=== PATIENT | male | born 1945 | race Caucasian/White ===

== ENCOUNTER 2022-06-20 06:26 | Inpatient (IN) ==
--- NOTE | 2022-06-16 10:04 | Anesthesiology Consultation ---
Date of Service June 16, 2022 Assessment & Plan (1) Encounter for pre-operative examination: Chart Review Chart Review: Pending: Refer to Additional Notes / Consult section (pending most recent [facility] cardio note) and Patient NOT seen in Pre Admission Testing - Please fax for most recent [facility] Cardio note (per patient- seen 05/2022) - Check BSG AM DOS - Will order preop EKG DOS -COVID screening: Per PAT nursing assessment on 06/10/22. No known COVID-19 positive contacts or current COVID-19 related symptoms. Travel screen negative. Patient vaccinated for Covid. At surgeon discretion if preop Covid testing being done. History Surgery Operation Date: 06/20/22 08:30 Proposed Procedures p Bilateral Open Inguinal Hernia Repair - Juan Singh MD, FACS Height/Weight Height: 5 ft 6 in Weight: 66.678 kg Allergies Allergy/AdvReac Type Severity Reaction Status Date / Time morphine AdvReac Hallucinati Verified 06/10/22 10:43 ng Medications Home Medications Medication Instructions Recorded Confirmed Last Taken aspirin 81 mg tablet,delayed 81 mg PO QAM 01/13/20 06/10/22 Unknown release (Adult Low Dose Aspirin) atorvastatin 80 mg tablet 80 mg PO QAM 01/13/20 06/10/22 Unknown folic acid 1 mg tablet 1 mg PO QAM 01/13/20 06/10/22 Unknown metoprolol tartrate 25 mg tablet 50 mg PO QAM 01/13/20 06/10/22 Unknown lidocaine 5 % topical ointment 1 applic topical BID PRN pain 09/04/20 06/10/22 Unknown clobetasol 0.05 % topical gel 1 applic topical DAILY 06/08/22 06/10/22 Unknown empagliflozin 10 mg tablet 10 mg PO QAM 06/08/22 06/10/22 Unknown lisinopril 10 mg tablet 5 mg PO QAM 06/08/22 06/10/22 Unknown multivit,tx w/iron (hematinic) 27 1 tab PO QAM 06/08/22 06/10/22 Unknown mg-0.8 mg tablet furosemide 20 mg tablet 20 mg PO QAM 06/09/22 06/10/22 Unknown insulin glargine 100 unit/mL (3 10 unit subcut PM PRN dm 06/10/22 06/10/22 Unknown mL) subcutaneous pen (Lantus Solostar U-100 Insulin) Past Medical History Medical History CAD (coronary artery disease) Follows with [facility] Cardiology s/p 2 vessel CABG 2019 Cardiomyopathy EF 20% in 2019 prior to CABG- per 2021 ECHO- EF 50-55% Chronic kidney disease DDD (degenerative disc disease) DM type 2 (diabetes mellitus, type 2) History of myocardial infarction 11/2019 HTN (hypertension) Hypercholesteremia Lumbar facet joint syndrome Lumbar radicular pain Lumbar spondylosis Moderate aortic stenosis Last ECHO 12/17/21 Sciatica Past Family History Family History Other Unknown family medical history Past Surgical History Surgical History History of cardiac cath 11/2019 - [facility] - [place] ---> CABG History of colonoscopy History of coronary artery bypass graft x 2 History of umbilical hernia repair Social History Smoking Status: Former smoker Do You Dip or Chew Tobacco: No Smoking End Date: quit 36 years ago Hx Alcohol Use: Yes alcohol intake frequency: holidays/special occasions only Hx Substance Use: No substance use type: does not use Lab Results Anesthesia Preop Results Results Anesthesia Widget: WBC 9.48 K/ul (4.8-10.8) 06/09/22 Hgb 12.5 g/dl (14.0-18.0) L 06/09/22 Hct 38.7 % (40.1-51.0) L 06/09/22 Plt 311 K/uL (130-400) 06/09/22 Na 139 mmol/L (136-145) 06/09/22 K 4.2 mmol/L (3.5-5.1) 06/09/22 Cl 107 mmol/L (98-107) 06/09/22 CO2 24 mmol/L (21-32) 06/09/22 BUN 35 mg/dl (6-23) H 06/09/22 Creat 1.81 mg/dl (0.6-1.4) H 06/09/22 Glucose Level 130 mg/dl (70-99(Fasting)) H 06/09/22 Testing Laboratory Results Elevated creatinine- CKD per records - creatinine stable (1.8 in [facility]) Echocardiogram Date: 12/17/21 EF: 50-55% LV Function: normal Other Findings: + diastolic dysfunction (Grade 1); no LVH Mild basal to mid inferior wall hypokinesis Mild mitral annular calcification Restricted aortic leaflet opening consistent with moderate aortic stenosis. (DESTINY 1.1cm2; AV mean PG 13.18mmHg; AV max velocity 2.25m/s) No AR Mild TR. No evidence of pulmonary hypertension. Cardiac Catheterization Date: 11/07/19 Multivessel CAD with severe LV systolic dysfunction. Distal left main 30% stenosis LAD descending proximal 99% stenosis Left circumflex ostial 70 to 80% stenosis, mid 100% RCA proximal mid 50% stenosis, with proximal PDA 70-80% lesion EF 20% (Patient had subsequent two-vessel CABG)
[~2022-06-20 06:26] MED LIST: LR 15ML/HR IV SCH; ceFAZolin 2000MG 2,000 MG/15 ML SYR IV SCH
[2022-06-20] MEDS ORDERED: PROPOFOL IV EMULSION 10 MG/ML 20 ML VIAL IV ONE (07:23)
[2022-06-20] MEDS ORDERED: LIDOCAINE 2% MPF LOCAL 5 ML VIAL INFIL ONE (07:23)
[2022-06-20] MEDS ORDERED: ONDANSETRON INJ 2 MG/ML 2 ML VIAL ONE (07:23)
[2022-06-20] MEDS ORDERED: fentaNYL citrate 100 MCG/2 ML VIAL ONE (07:23)
[2022-06-20] MEDS ORDERED: ePHEDrine sulfate 50 MG/ML AMP IV PRN (08:02)
[2022-06-20] MEDS ORDERED: ONDANSETRON INJ 2 MG/ML 2 ML VIAL IV PRN ×2 (08:02→12:16)
[2022-06-20] MEDS ORDERED: PROMETHAZINE HCL 12.5 MG in SODIUM CHLORIDE 0.9% 50 ML IV PRN (08:02)
[2022-06-20] MEDS ORDERED: LABETALOL HCL IV 5 MG/ML 20ML IV PRN (08:02)
[2022-06-20] MEDS ORDERED: NALOXONE HCL 0.4 MG/1 ML VIAL/CARP IV PRN (08:02)
[2022-06-20] MEDS ORDERED: fentaNYL citrate 100 MCG/2 ML VIAL IV PRN (08:02)
[2022-06-20] MEDS ORDERED: FLUMAZENIL 0.1 MG/1 ML 10 ML VIAL IV PRN (08:02)
[2022-06-20] MEDS ORDERED: ATROPINE SULFATE 0.1 MG/ML 10ML SYR IV PRN (08:02)
--- NOTE | 2022-06-20 08:08 | History & Physical Bridge Note ---
Date of Service June 20, 2022 History & Physical Bridge Note I have examined the patient, reviewed the History & Physical and in the interval since the performance of the History & Physical I have noted the following changes of clinical significance: no changes noted
[2022-06-20] MEDS ORDERED: BUPIVACAINE 0.5 % 5 MG/1 ML MPF 30ML VIAL ONE (08:28)
[2022-06-20] MEDS ORDERED: ceFAZolin 330 MG/ML 1 GM VIAL ONE (08:28)
[2022-06-20] MEDS ORDERED: PHENYLEPHRINE HCL 10 MG/ML VIAL ONE (09:44)
[2022-06-20] MEDS ORDERED: PHENYLEPHRINE 100MCG/ML 5ML SYR ONE (09:44)
--- NOTE | 2022-06-20 10:05 | Post Operative Brief Note ---
PG Immediate Post Op with CF Date of Surgery June 20, 2022 Pre & Post Diagnosis Operation Date: 06/20/22 08:30 Pre-Op Diagnosis: Bilateral Inguinal Hernia Post-Op Diagnosis: Bilateral Inguinal Hernia Right direct Left indirect I identified the patient and participated in the time-out.: Yes Procedure Operation Date: 06/20/22 08:30 Actual Procedures p Bilateral Open Inguinal Hernia Repair with Mesh(Bilateral) - Juan Singh MD, FACS Surgeon Juan Singh MD, FACS Jackspooler milton reeves Estimated Blood Loss 10 Findings Consistent with Post-Op Diagnosis Right direct inguinal hernia Left indirect inguinal hernia
[2022-06-20] MEDS ORDERED: ACETAMINOPHEN 1,000 MG/100 ML VIAL IV ONE (10:10)
--- NOTE | 2022-06-20 10:37 | Hospitalist Consultation ---
Date of Consultation June 20, 2022 Assessment & Plan (1) Status post bilateral inguinal hernia repair: Pain, VTE and bowel regimen management per primary team EBL 10ml No acute need to repeat labs today, will get routine post op labs in AM (2) Chronic kidney disease: Basline Cr per last [facility] 1.8. Repeat BMP with AM labs (3) Chronic heart failure with preserved ejection fraction: Advised patient to clarify medications with his skimmer at next visit as cardiology note suggest he takes spironolactone and no furosemide however he actually take furosemide 20mg PO daily. Med rec was incorrect and he actually takes metoprolol succinate rather than tartrate. He also only takes half a tablet. I updated this on the patients home med list and it is consistent on his skimmer's and [facility] notes Ok for slow routine IV fluids post operatively, LR is ideal - if he becomes more short of breath however these should be discontinued. (4) Cardiomyopathy: Ischemic with CABG in November 2019 LVEF 50-55% per Continue his routine metoprolol succinate and lisinopril (with hold parameters) as above (5) H/O coronary artery bypass surgery: Restart aspirin when ok by surgery Should continue metoprolol succinate perioperatively Restart atorvastatin in AM Restart lisinopril tomorrow with hold parameters (6) Diabetes: T2DM HbA1C per [facility] notes 7.5, no need to repeat this Pharmacy consulted for glycemic control. Preferably continue Jardiance in AM given concurrent chronic CHF. (7) Hypercholesteremia: Restart atorvastatin in AM (8) HTN (hypertension): Continue metoprolol succinate as above Lisinopril can restart tomorrow with hold parameters if sBP < 120 Furosemide restart on 06/22 as long as BP ok Plan VTE Prophylaxis - per primary surgical team Diet - per primary surgical team Disposition - no acute medical needs identified but given complexity in patient we will continue to follow him along with you while he is admitted. History of Present Illness Reason for Consultation: Medical management Attending Physician: Juan Singh MD, FACS History of Present Illness Alonzo Chaudhary is a 76 year old male who presents for elective bilateral inguinal hernia repair performed by Dr Singh earlier today. Estimated blood loss 10ml. No complications dueing surgical procedure. He reports taking his usual metoprolol this morning as per recommendations from his skimmer. Chronic medical conditions per scanned records and patient recollection: Chronic HFpEF - on spironolactone 25mg PO daily on cardiology note but furosemide 20mg PO daily [facility]. Unable to clarify external med list as he [facility] therefore suspect the [facility] record is more accurate. Patient confirms taking furosemide and not spironolactone. No shortness of breath at this time and no increasing orthopnea before operation. Currently on room air and lungs clear to auscultation b/l. Ischemic cardiomyopathy - LVEF recovered to 50-55% per last cardiology note Moderate aortic stenosis - no chest pain, shortness of breath or lightheadedness normal on exertion. Chronic kidney disease with baseline Cr 2.18 under nephrology per outpatient notes, pre-op Cr 1.8 Coronary artery disease - patient underwent CABG in November 2019 with BUITRAGO-LAd and SVG-PDA Cardiology recommendations for surgery - gordon-operative B blockade. Monotherapy with ASA need not be routinely d/c'd for surgery but left to surgeons discretion T2DM - HbA1C 7.5 on May 19, 2022 labs from [place], no need to repeat this. Takes 10 units HS if > 150 of Lantus. Stopped Jardiance Monday, Sat Monday. B12 def. - takes multivitamin Idiopathic progressive neuropathy - although with his diabetes and B12 def. listed I'm unclear why this is listed as idiopathic Allergies Allergy/AdvReac Type Severity Reaction Status Date / Time morphine AdvReac Hallucinati Verified 06/20/22 07:00 Home Medications Medication Instructions Recorded Confirmed Type aspirin 81 mg tablet,delayed 81 mg PO QAM 01/13/20 06/20/22 History release (Adult Low Dose Aspirin) atorvastatin 80 mg tablet (Lipitor) 80 mg PO QAM 01/13/20 06/20/22 History folic acid 1 mg tablet 1 mg PO QAM 01/13/20 06/20/22 History lidocaine 5 % topical ointment 1 applic topical BID PRN pain 09/04/20 06/20/22 History clobetasol 0.05 % topical gel 1 applic topical DAILY 06/08/22 06/20/22 History empagliflozin 10 mg tablet 10 mg PO QAM 06/08/22 06/20/22 History (Jardiance) lisinopril 10 mg tablet 5 mg PO QAM 06/08/22 06/20/22 History multivit,tx w/iron (hematinic) 27 1 tab PO QAM 06/08/22 06/20/22 History mg-0.8 mg tablet furosemide 20 mg tablet 20 mg PO QAM 06/09/22 06/20/22 History insulin glargine 100 unit/mL (3 10 unit subcut PM PRN dm 06/10/22 06/20/22 History mL) subcutaneous pen (Lantus Solostar U-100 Insulin) metoprolol succinate 50 mg 25 mg PO DAILY 06/20/22 06/20/22 History tablet,extended release 24 hr Patient History Medical History (Updated 06/20/22 @ 10:39 by Brenton Khan MD) CAD (coronary artery disease) Follows with [facility] Cardiology s/p 2 vessel CABG 2019 Cardiomyopathy EF 20% in 2019 prior to CABG- per 2021 ECHO- EF 50-55% Chronic kidney disease DDD (degenerative disc disease) DM type 2 (diabetes mellitus, type 2) History of myocardial infarction 11/2019 HTN (hypertension) Hypercholesteremia Lumbar facet joint syndrome Lumbar radicular pain Lumbar spondylosis Moderate aortic stenosis Last ECHO 12/17/21 Sciatica Surgical History (Updated 06/20/22 @ 14:58 by Polly Heredia RN) H/O bilateral inguinal hernia repair (06/20/22) Bilateral inguinal hernia repair Dr. Singh History of cardiac cath 11/2019 - [facility] ---> CABG History of colonoscopy History of coronary artery bypass graft x 2 History of umbilical hernia repair Family History Other Unknown family medical history Social History Smoking Status: Former smoker Smoking End Date: quit 36 years ago; Second Hand Exposure: No; Do You Dip or Chew Tobacco: No; Tobacco Cessation Education Requested by Patient: No Hx Alcohol Use: Yes Hx Substance Use: No Preferred Language: Sammarinese Communication Ability: Effective Visual Impairment: No Limitations Admitting Clerk Required: No Beliefs That Will Affect Care: None marital status: Current Living Situation: Spouse current occupational status: retired How many Children do You have: 2 Feels Safe at Home: Yes Safety Concerns: Feels Safe At This Time during the past year weight has: decreased > 10 lbs Assistive Devices: Denture - Upper Assistive Devices Comment: reading glasses Review of Systems Review of Systems: All systems reviewed & are unremarkable except as noted in Subjective Physical Exam Constitutional: WD/WN, vitals as above Eyes: + anicteric sclerae; normal pupil size Respiratory: normal respiratory effort, lungs clear to auscultation Cardiovascular: RRR, no murmur, no edema Gastrointestinal (Abdomen): Percussion/Palpation: + abdomen tender (around surgical incisions) and abdomen soft; no guarding and abdomen not rigid Musculoskeletal: no cyanosis or clubbing, extremities motor strength 5/5 Skin: no rashes, warm and dry Neurologic: moves all extremities and awake; not confused Psychiatric: A+Ox3, euthymic affect Results & Data Results & Data ([facility]) Vital Signs (Past 12 Hours) Vital Signs Temp Pulse Resp BP Pulse Ox O2 Del Method 06/20/22 07:12 36.5 C 77 18 121/80 97 Room Air PG Care Time/CCT Total # of Minutes Spent Total Time Spent with Patient: Total time spent is greater than 50% in coordination of care (as documented) at patient's floor/unit and/or counseling patient: Coding Level of Care Code 38955 Inpt Consult Level 5 Diagnoses Status post bilateral inguinal hernia repair Z98.890; Z87.19 Chronic kidney disease N18.9 Chronic heart failure with preserved ejection fraction I50.32 Cardiomyopathy I42.9 H/O coronary artery bypass surgery Z95.1 Diabetes E11.9 Hypercholesteremia E78.00 HTN (hypertension) I10
--- NOTE | 2022-06-20 10:59 | Anesthesiology Progress Note ---
Date of Service June 20, 2022 Anesthesia Post Procedure Vital Signs Vital Signs: Temp Pulse Pulse Resp BP BP Pulse Ox 06/20/22 10:50 69 21 136/61 96 06/20/22 10:40 73 23 141/78 H 96 06/20/22 10:30 64 22 144/83 H 98 06/20/22 10:20 80 21 153/68 H 98 06/20/22 10:12 36.2 C L 75 14 138/84 98 06/20/22 07:12 36.5 C 77 18 121/80 97 O2 Del Method O2 Flow Rate 06/20/22 10:50 Room Air 06/20/22 10:40 Room Air 06/20/22 10:30 Room Air 06/20/22 10:20 Oxymask 2 06/20/22 10:12 Oxymask 2 06/20/22 07:12 Room Air Pain Intensity Left Groin: Pain Intensity: 6 Right Groin: Pain Intensity: 2 Transfer of Care Handoff Completed per policy Notes Mental Status: alert / awake / arousable Patient Amnestic to Procedure: Yes Nausea / Vomiting: adequately controlled Pain: adequately controlled Airway Patency, RR, SpO2: stable & adequate BP & HR: stable & adequate Hydration State: stable & adequate Anesthetic Complications: no major complications apparent
--- NOTE | 2022-06-20 11:43 | Operative Report (OR) ---
DATE OF OPERATION: 06/20/2022. NAME OF OPERATION: Bilateral inguinal hernia repair. PREOPERATIVE DIAGNOSIS: Bilateral inguinal hernia. POSTOPERATIVE DIAGNOSIS: Bilateral inguinal hernia with indirect defect on the right and indirect de fect on the left. STAFF SURGEON: Juan Singh MD. SPEEDER MACHINE OPERATOR: Opal Raymundo PA-C. ANESTHESIA: General. DESCRIPTION OF PROCEDURE: The patient was brought in the operating room and placed on the operating table in supine position. We did attempt Chapman catheter, but had difficulty passing; therefore, we h eld off. His lower abdomen was prepped and draped in the usual fashion. My assistant administrator helped with pre pping, draping, repair of the hernias, and closure of the wounds. Left side was approached first. B oth sides were anesthetized using 0.5% plain Marcaine for the skin and subcutaneous tissue and also d eep tissue. Incision was made on the left side parallel to the inguinal ligament, carrying dissectio n down, identifying the external oblique fibers, incising them along their length. Cord structures w ere mobilized. The patient had a large indirect hernia, which was reduced and the defect then reinfo rced using a mesh plug secured to surrounding tissue using 2-0 Ethibond suture. Then a large piece of mesh placed into the floor of the canal around the cord structures, secured using 2-0 Ethibond sutur e. Site was irrigated with antibiotic solution and then External oblique fibers closed over the mesh around the cord structures using 2-0 Ethibond suture. Site was anesthetized using 0.5% plain Marcai ne. Subcutaneous tissue was reapproximated using 2-0 plain suture, then the skin reapproximated usin g 4-0 nylon and Steri-Strips. Right side was approached, exact same dissection. However, at this ti ny, the patient did have a direct inguinal hernia, which was reduced with a mesh plug placed medially and secured using 2-0 Ethibond suture. Then, the mesh patch placed into the floor of the canal arou nd the cord structures with the same procedure as on the left side. Again, sutures for the skin and Steri-Strips. Dressings applied and the patient was transferred to recovery room in stable condition . Job ID: [id number]
[2022-06-20] MEDS ORDERED: HYDROCODONE/ACETAMOPHEN 5/325MG TAB PO PRN (12:16)
[2022-06-20] MEDS ORDERED: ACETAMINOPHEN 325 MG TAB PO PRN (12:16)
[2022-06-20] MEDS ORDERED: MoRPHine SULFATE 2 MG/ML CARP IV PRN (12:16)
[2022-06-20] MEDS ORDERED: LACTATED RINGER'S 1,000 ML IV SCH (12:16)
[2022-06-20] MEDS ORDERED: PHARMACY GLYCEMIC MGMT CONSULT PRN (13:15)
[2022-06-20] MEDS ORDERED: CARBOHYDRATES FOR HYPOGLYCEMIA PO PRN (13:16)
[2022-06-20] MEDS ORDERED: GLUCOSE 40% GEL 15 GM TUBE PO PRN (13:16)
[2022-06-20] MEDS ORDERED: GLUCAGON FOR INJ 1 MG VIAL SQ PRN (13:16)
[2022-06-20] MEDS ORDERED: DEXTROSE 50% 50 ML SYRINGE IV PRN (13:16)
[2022-06-20] MEDS ORDERED: GLUCOSE 10 TAB/TUBE PO PRN (13:16)
[2022-06-20] MEDS ORDERED: HYDROmorphone INJ 0.5 MG/0.5 ML SYR IV PRN (13:34)
--- NOTE | 2022-06-20 13:50 | Pharmacy Report ---
Pharmacy Glycemic Short Note 2 - Date of Service June 20, 2022 - Glycemic Short BSG Results (Last 24 hours): 06/20/22 06/20/22 06/20/22 07:00 10:21 12:24 POC Glucose 131 H 119 H 141 H OUTPATIENT ANTIDIABETIC REGIMEN: * Jardiance 10mg PO Daily * Lantus 10 units HS for BSG > 150mg/dl * A1c 7.5% per [facility] ASSESSMENT: * 76 year old male s/p hernia repair by Dr Singh, Type 2 DM, continued on home oral med, Jardiance, chronic CHF, will continue and hold carb coverage at this time. * Add CR if patient's blood sugar increases w/ meals. * Hold basal at this time, only takes PRN at home. * No steroids pre-op or post-op. PLAN FOR INPATIENT GLYCEMIC CONTROL: * Jardiance 10mg PO Daily * Basal insulin * hold at this time * Bolus insulin * NovoLog per scale ACHS or Q6hrs while NPO * Goal Range: Low 110 mg/dL - High 140 mg/dL * Correction Factor: 30 mg/dL/unit * Nutritional / Prandial insulin per carb ratio of 1 unit per -- grams CHO consumed - none at this time
[2022-06-20] MEDS: INSULIN ASPART PER UNIT SC SCH ×3 (13:54→22:37)
[2022-06-20] MEDS ORDERED: EMPAGLIFLOZIN 10 MG TAB PO ONE (14:00)
[2022-06-20] MEDS ORDERED: oxyCODONE/ACETAMINOPHEN 5mg/325mg TAB PO PRN (14:41)
[2022-06-20] MEDS: oxyCODONE/ACETAMINOPHEN 5mg/325mg TAB PO PRN ×2 (15:11→20:09)
[2022-06-20] MEDS: ceFAZolin 1000MG 1,000 MG/7.5 ML SYR IV SCH (18:16)
[2022-06-20] MEDS: DOCUSATE SODIUM/SENNA 50/8.6MG TAB PO SCH (20:09)
[2022-06-20] MEDS: MAGNESIUM HYDROXIDE SUSP 30 ML UDC PO SCH (20:09)
[2022-06-21] MEDS: ceFAZolin 1000MG 1,000 MG/7.5 ML SYR IV SCH ×2 (00:55→08:10)
[2022-06-21] MEDS: oxyCODONE/ACETAMINOPHEN 5mg/325mg TAB PO PRN (04:08)
[2022-06-21] MEDS: DOCUSATE SODIUM/SENNA 50/8.6MG TAB PO SCH (08:03)
[2022-06-21] MEDS: MAGNESIUM HYDROXIDE SUSP 30 ML UDC PO SCH (08:04)
--- NOTE | 2022-06-21 08:12 | Discharge Summary (DS) ---
DATE OF ADMISSION: 06/20/2022. DATE OF DISCHARGE: 06/21/2022. PRINCIPAL DIAGNOSIS: Bilateral inguinal hernia repair. HISTORY OF PRESENT ILLNESS: The patient is a 76-year-old male who presented to the hospital for elec tive bilateral inguinal hernia repair on 06/20/2022. He did well from his operation, was able to voi d well overnight and is felt stable for discharge home today to be followed in the surgical clinic ne xt week. Job ID: [id number]
--- NOTE | 2022-06-21 08:57 | Hospitalist Progress Note ---
Date of Service June 21, 2022 Assessment & Plan (1) Status post bilateral inguinal hernia repair: Plan: S/P bilateral inguinal hernia repair 06/20/22 Did well and also voiding on his own and to be discharged home today (2) Chronic kidney disease: Plan: Basline Cr per [facility] 1.8. Repeat BMP this AM pending (3) Chronic heart failure with preserved ejection fraction: Plan: Patient to clarify medications with his nurse transitional at his next visit Currently updated list includes Metoprolol Succinate 25mg Lisinopril 5mg Per patient he is not on Lasix he is on Spironolactone 25mg and takes 1/2 tablet daily. (Cardiology note from 06/15/22 listed Spironolactone 25mg) Can start the spironolactone tomorrow (4) Cardiomyopathy: Plan: Ischemic with CABG in November 2019 LVEF 50-55% per last echo in December 2021 Continue his routine metoprolol succinate and lisinopril (with hold parameters) as above (5) H/O coronary artery bypass surgery: Plan: Restarted ASA today Should continue metoprolol succinate perioperatively Restarted atorvastatin today Restarted lisinopril today (6) Diabetes: Plan: T2DM HbA1C per [facility] notes 7.5, no need to repeat this Pharmacy consulted for glycemic control. Preferably continue Jardiance in AM given concurrent chronic CHF. (7) Hypercholesteremia: Plan: Restarted atorvastatin today (8) HTN (hypertension): Plan: Continue metoprolol succinate as above Lisinopril restarted today Spironolactone 12.5 mg restart tomorrow Follow up with cardiology Plan VTE Prophylaxis - per primary surgical team Diet - per primary surgical team Disposition - no acute medical needs identified but given complexity in patient we will continue to follow him along with you while he is admitted. Admission and Anticipated Discharge Date Admission Date: June 20, 2022 Supervising Physician Co-Signing Physician Notes chart reviewed, agree rebeca Garzon PAC, as above Subjective Patient is s/p bilateral inguinal hernia repair 06/20/22 Patient did well and is being discharged to home today Per patient he is not on Lasix he is on Spironolactone 1/2 pill per day He is awake and dressed sitting up in bed He states he is urinating well and also had a BM. He denies any CP or SOB, he only has some mild incisional pain Review of Systems Constitutional: no fever, no chills and no weight loss Respiratory: no cough, no chest congestion and no dyspnea Cardiovascular: no chest pain, no dyspnea and no syncope Gastrointestinal: no nausea, no vomiting and no constipation Integumentary: no rash, no lesions and no new lesions Physical Exam Constitutional: WD/WN, vitals as above Neck: trachea midline, no thyromegaly Respiratory: normal respiratory effort, lungs clear to auscultation Cardiovascular: RRR, no murmur, no edema Skin: no rashes, warm and dry Psychiatric: A+Ox3, euthymic affect Results & Data Results & Data ([facility]) Vital Signs (Past 12 Hours) Vital Signs Temp Pulse Resp BP Pulse Ox O2 Del Method 06/21/22 07:39 36.7 C 66 14 97/61 L 91 Room Air 06/21/22 03:43 36.6 C 68 18 93/60 L 96 Room Air 06/20/22 23:09 36.8 C 67 18 108/71 96 Room Air Laboratory Results Abnormal lab results 06/20/22 06/20/22 06/20/22 Range/Units 10:21 12:24 17:03 RBC (4.63-6.08) M/uL Hgb (14.0-18.0) g/dl MCV (80.0-100.0) fL MCHC (32.0-36.0) g/dL RDW Std Deviation (36.4-46.3) fL Immature Gran # (Auto) (0.00-0.02) K/uL POC Glucose 119 H 141 H 120 H (70-99) mg/dl 06/20/22 06/21/22 06/21/22 Range/Units 20:27 08:18 09:32 RBC 4.05 L (4.63-6.08) M/uL Hgb 12.9 L (14.0-18.0) g/dl MCV 101.0 H (80.0-100.0) fL MCHC 31.5 L (32.0-36.0) g/dL RDW Std Deviation 53.2 H (36.4-46.3) fL Immature Gran # (Auto) 0.03 H (0.00-0.02) K/uL POC Glucose 151 H 150 H (70-99) mg/dl PG Care Time/CCT Total # of Minutes Spent Total Time Spent with Patient: Total time spent is greater than 50% in coordination of care (as documented) at patient's floor/unit and/or counseling patient: Coding Level of Care Code 62698 Subseq Hosp Care Lvl 1 Diagnoses Status post bilateral inguinal hernia repair Z98.890; Z87.19 Chronic kidney disease N18.9 Chronic heart failure with preserved ejection fraction I50.32 Cardiomyopathy I42.9 H/O coronary artery bypass surgery Z95.1 Diabetes E11.9 Hypercholesteremia E78.00 HTN (hypertension) I10 Time Spent (min) 15
[2022-06-21] MEDS ORDERED: FOLIC ACID 1 MG TAB PO SCH (09:00)
[2022-06-21] MEDS ORDERED: ATORVASTATIN 40 MG TAB PO SCH (09:00)
[2022-06-21] MEDS ORDERED: ASPIRIN 81 MG ECTAB PO SCH (09:00)
[2022-06-21] MEDS ORDERED: lisinopril 5 MG TAB PO SCH (09:00)
[2022-06-21] MEDS ORDERED: METOPROLOL TARTRATE 50 MG TAB PO SCH (09:00)
[2022-06-21] MEDS ORDERED: FUROSEMIDE 20 MG TAB PO SCH (09:00)
[2022-06-21] MEDS ORDERED: EMPAGLIFLOZIN 10 MG TAB PO SCH (09:00)
[2022-06-21] MEDS ORDERED: METOPROLOL SUCC 25MG EXT REL TAB PO SCH (09:00)
[2022-06-21] MEDS: INSULIN ASPART PER UNIT SC SCH (09:19)
[2022-06-21 10:11] LABS: Basophils # (auto) 0.04 K/uL (0-0.2); Basophils % (auto) 0.5 %; Eosinophils # (auto) 0.26 K/uL (0-0.50); Eosinophils % (auto) 3.1 %; Hematocrit (blood only) 40.9 % (40.1-51.0); Hemoglobin 12.9 g/dl (14.0-18.0); Immature Granulocytes # (auto) 0.03 K/uL (0.00-0.02); Immature Granulocytes % (auto) 0.4 %; Lymphocytes # (auto) 1.96 K/uL (1.2-3.4); Lymphocytes % (auto) 23.6 %; Mean Corpuscular Hemoglobin 31.9 pg (25.0-34.0); Mean Corpuscular Hgb Conc 31.5 g/dL (32.0-36.0); Mean Platelet Volume 10.7 fL (9.4-12.4); Monocytes # (auto) 0.73 K/uL (0.24-0.82); Monocytes % (auto) 8.8 %; Neutrophils # (auto) 5.29 K/uL (1.4-6.5); Neutrophils % (auto) 63.6 %; Platelet Count 229 K/uL (130-400); RDW Coefficient of Variation 14.2 % (11.5-14.5); RDW Standard Deviation 53.2 fL (36.4-46.3); Red Blood Count 4.05 M/uL (4.63-6.08); White Blood Count 8.31 K/ul (4.8-10.8)
[2022-06-21 10:35] LABS: BUN Creatinine Ratio 16.2 (10-20); Calcium 9.3 mg/dl (8.5-10.1); Creatinine Clr Calc Pharmacy 27.9 ml/min; Est GFR (African American) 36.6 ml/min; Est GFR (Non-African American) 31.6 ml/min; Potassium 4.3 mmol/L (3.5-5.1)
--- NOTE | 2022-06-21 21:56 | Electrocardiogram Report ---
Test Reason : Blood Pressure : / mmHG Vent. Rate : 078 BPM Atrial Rate : 078 BPM P-R Int : 166 ms QRS Dur : 130 ms QT Int : 392 ms P-R-T Axes : 083 -17 103 degrees QTc Int : 446 ms Normal sinus rhythm Right bundle branch block Inferior infarct , age undetermined Abnormal ECG No previous ECGs available Confirmed by Paul Moya ([id number]) on 06/21/2022 9:56:03 PM Referred By: Juan Singh Confirmed By:Paul Moya
[2022-06-22] MEDS ORDERED: SPIRONOLACTONE 25 MG TAB PO SCH (09:00)
[2022-06-22] MEDS ORDERED: SPIRONOLACTONE 12.5 MG TAB PO SCH (09:00)
[2022-06-22] MEDS ORDERED: FUROSEMIDE 20 MG TAB PO SCH (09:00)
== END 2022-06-21 10:37 | disposition home or self-care (01) | DRG 351 ==
LOC: ASU 06:26 → SUATTDRO 10:18 → 3W 10:18